=== PATIENT | male | born 1945 | race Caucasian/White ===

== ENCOUNTER → 2016-10-05 | Outpatient (CLI) | payer OTHER ==
[~2016-10-05] MED LIST: MIRALAX119 GM PO; NORCO 10-325 TA1 TAB PO; SENOKOT S1 TA1 PO; ZESTRIL40 MG PO; ZOCOR PO
--- NOTE | ~2016-10-05 | CT4 ---
[facility] A Service of [facility] & [facility] RADIOLOGY TEXT RESULTS PATIENT: EDY HENAO LOCATION: [facility] : [birth year] UNIT #: [id number] AGE: [address]: Sharif Ramirez MD SEX: M ORDER DR: [id number] [facility] [address] [place], [place] [address] [id number] O MR#: [id number] Acc #: [id number] NAME: EDY HENAO : 1945 SEX: M STUDY DATE/TIME: 10/05/2016 9:21 UNIT: CN ROOM: STUDY DESCRIPTION: CT Abd and Pelv Wo Cont Attending Physician: Sharif Ramirez M.D. Referring Physician: Sharif Ramirez M.D. Ordering Physician: Sharif Ramirez M.D. Primary Care Physician: Francois Fowler M.D. MEDICAL IMAGING REPORT This report is preliminary unless electronic signature is present EXAM CT abdomen and pelvis without contrast. INDICATION Slow urination for the past 7-8 months. Newly diagnosed prostate cancer 2 weeks ago. Staging. Observation for metastatic disease. PROCEDURE Unenhanced CT of the abdomen and pelvis. This CT exam was performed with one or more of the following radiation dose reduction techniques: automatic exposure control, adjustment of mA and/or kV according to patient size, and iterative reconstruction. COMPARISON STUDIES 10/10/2005 FINDINGS ABDOMEN WITHOUT CONTRAST: Included lung bases are clear. The liver, spleen, adrenal glands, pancreas, and gallbladder are unremarkable. Fairly extensive sigmoid diverticula. The appendix is normal. There is a 2.2 cm indeterminate lesion exophytic from the posterior left mid kidney. There is a 4.1 cm cyst exophytic from the anterior left kidney. No retroperitoneal adenopathy. PELVIS WITHOUT CONTRAST: Prostate enlarged measuring 5.7 cm. No pelvic adenopathy. No aggressive appearing bone lesion. There is a age indeterminant compression fracture of L3, with greater than 50% loss of central vertebral body height. This is new compared with 2006. IMPRESSION 1. No evidence for solid organ metastatic disease in the abdomen or [facility]. [facility] A Service of [facility] & [facility] RADIOLOGY TEXT RESULTS PATIENT: EDY HENAO LOCATION: [facility] : [birth year] UNIT #: [id number] AGE: [address]: Sharif Ramirez MD SEX: M ORDER DR: pelvis. 2. Prostatomegaly. 3. Left renal cysts with an indeterminate 2.2 cm lesion posterior left mid kidney, which should be further characterized. Initial evaluation with ultrasound may be helpful. Ultimately, multiphase MRI or CT will probably be required. 4. Age-indeterminate compression fracture of L3 is new compared with the [address] Dictated by... Keegan Vora M.D. THIS IS AN ELECTRONICALLY VERIFIED REPORT Keegan Vora M.D. at 10/06/2016 7:06 AM MARY/radha TD: 10/05/2016 11:54 JOB #: [id number] MEDICAL IMAGING REPORT Page 1 of 1 COPY
--- NOTE | ~2016-10-05 | NM8 ---
[facility] A Service of [facility] & [facility] RADIOLOGY TEXT RESULTS PATIENT: EDY HENAO LOCATION: [facility] : 49 UNIT #: [id number] AGE: [address]: Sharif Ramirez MD SEX: M ORDER DR: [id number] [facility] [address] [place], [place] [address] [id number] O MR#: [id number] Acc #: [id number] NAME: EDY HENAO : 1945 SEX: M STUDY DATE/TIME: 10/05/2016 11:50 UNIT: [facility] ROOM: STUDY DESCRIPTION: CA Bone or Joint Whole Body Attending Physician: Sharif Ramirez M.D. Referring Physician: Sharif Ramirez M.D. Ordering Physician: Sharif Ramirez M.D. Primary Care Physician: Francois Fowler M.D. MEDICAL IMAGING REPORT This report is preliminary unless electronic signature is present EXAM Whole body bone scan HISTORY Prostate cancer diagnosed two week ago. 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 COMPARISON CT scan of the abdomen and pelvis done the same day 10/05/2016. FINDINGS Patient was given 30.3 mCi Tc 99m MDP. Anterior and posterior images of the body were obtained as well as lateral views of the skull and neck and oblique views of the ribs. There is an intense focus of uptake in the posterior skull slightly to the right of midline. There is mild uptake in the L2-3 level in the lumbar spine suggesting degenerative disc disease. The patient has bilateral knee prostheses. There is mild uptake in the feet bilaterally consistent with degenerative change. The CT scan shows a compression fracture of L3 which is new from 2005. There are also lumbar spine plain films from 06/21/2015. The compression fracture was present at that time. IMPRESSION 1. Intense focus of uptake just to the right of midline in the posterior skull. There are no correlative films. This could represent a metastatic deposit. CT head without contrast is recommended. 2. Compression fracture of L3 is noted on recent CT scan done today as well as a plain film from 06/21/2015 so it is not new but there is increased uptake at this level in a band-like pattern probably representing degenerative changes at this level. The bone scan appearance is not really suggestive of metastatic disease and the CT scan today did not show any evidence of metastatic disease in that region. [facility] A Service of [facility] RADIOLOGY TEXT RESULTS PATIENT: EDY HENAO LOCATION: [facility] : 49 UNIT #: [id number] AGE: [address]: Sharif Ramirez MD SEX: M ORDER DR: 3. Otherwise study is negative. Dictated by... Edy Escudero M.D. THIS IS AN ELECTRONICALLY VERIFIED REPORT Edy Escudero M.D. at 10/07/2016 1:59 PM DARI/rnr TD: 10/06/2016 22:13 JOB #: [id number] MEDICAL IMAGING REPORT Page 1 of 1 COPY
[2016-10-05 15:11] LABS: POC - CREATININE 1.82 mg/dL (0.64-1.27)
== END | disposition home or self-care (01) ==
LOC: CNUC 07:51
PROVIDERS: Urology
DX: C61 Malignant neoplasm of prostate (principal); N40.0 Benign prostatic hyperplasia without lower urinary tract symptoms; N28.1 Cyst of kidney, acquired; N28.89 Other specified disorders of kidney and ureter; R94.8 Abnormal results of function studies of other organs and systems
CPT/HCPCS: 74176; 78306; 82565; A9503

== ENCOUNTER → 2016-10-20 | Outpatient (CLI) | payer OTHER ==
--- NOTE | ~2016-10-20 | CT71 ---
[facility] A Service of [facility] RADIOLOGY TEXT RESULTS PATIENT: EDY HENAO LOCATION: [facility] : 47 UNIT #: [id number] AGE: [address]: AMBAR NICOLAS SEX: M ORDER DR: [id number] [id number] [facility]. [place], [place] [address] [id number] O MR#: [id number] Acc #: [id number] NAME: EDY HENAO : 1945 SEX: M STUDY DATE/TIME: 10/20/2016 10:10 UNIT: [facility] ROOM: STUDY DESCRIPTION: CT Head Wo Contrast Attending Physician: Ambar Nicolas Ordering Physician: Neo Nicolas M.D. Primary Care Physician: Francois Fowler M.D. MEDICAL IMAGING REPORT This report is preliminary unless electronic signature is present EXAM CT head without contrast Date: 10/20/2016 HISTORY Prostate cancer. Abnormal bone scan. No current complaints. COMPARISON Whole-body bone scan 10/05/2016. No previous PET/CT for comparison at this institution. TECHNIQUE This CT exam was performed with one or more of the following radiation dose reduction techniques: automatic exposure control, adjustment of mA and/or kV according to patient size, and iterative reconstruction. FINDINGS No suspicious osteolytic abnormalities are identified. There is a prominent external occipital protuberance with inion hook configuration, which is thought most likely to correspond to the patient's site of uptake on recent whole-body bone scan. No additional calvarial lesions are identified. No intracranial hemorrhage, intracranial mass lesion, mass effect or midline shift is seen. There is no evidence of infarct. Paranasal sinuses are clear. Ventricular configuration is normal. IMPRESSION There is a prominent external occipital protuberance or inion hook configuration of the calvarium thought to correspond to the site of [facility] A Service of [facility] RADIOLOGY TEXT RESULTS PATIENT: EDY HENAO LOCATION: [facility] : 49 UNIT #: [id number] AGE: [address]: AMABR NICOLAS: M ORDER DR: patient's uptake on the recent bone scan. It does not appear frankly pathologic on this study. It could potentially represent uptake from focal inflammation near the trapezius - nuchal ligament insertion. Metastatic disease is not completely excluded but thought less likely, given the lack of osseous aggressive features. Intracranial findings are within normal limits. Dictated by... Phuong Siddiqui M.D. THIS IS AN ELECTRONICALLY VERIFIED REPORT Phuong Siddiqui M.D. at 10/23/2016 8:33 AM IDA/robel TD: 10/20/2016 20:07 JOB #: [id number] MEDICAL IMAGING REPORT Page 1 of 1 COPY
== END | disposition home or self-care (01) ==
LOC: CCAT 09:24
DX: C61 Malignant neoplasm of prostate (principal)
CPT/HCPCS: 36415; 70450; 84153

== ENCOUNTER → 2016-10-20 | Outpatient (CLI) | payer OTHER ==
--- NOTE | ~2016-10-20 | US77 ---
[facility] A Service of [facility] & [facility] RADIOLOGY TEXT RESULTS PATIENT: EDY HENAO LOCATION: [facility] : 49 UNIT #: [id number] AGE: [address]: Sharif Ramirez MD SEX: M ORDER DR: [id number] [facility] [address] [place], [place] [address] [id number] O MR#: [id number] Acc #: [id number] NAME: EDY HENAO : 1945 SEX: M STUDY DATE/TIME: 10/20/2016 10:45 UNIT: [facility] ROOM: STUDY DESCRIPTION: US Kidney Bilateral Complete Attending Physician: Sharif Ramirez M.D. Referring Physician: Sharif Ramirez M.D. Ordering Physician: Sharif Ramirez M.D. Primary Care Physician: Francois Fowler M.D. MEDICAL IMAGING REPORT This report is preliminary unless electronic signature is present EXAMINATION Bilateral renal ultrasound. DATE 10/20/2016 HISTORY Left renal mass on CT. Patient denies abdominal pain. History of kidney stones with lithotripsy in the . Patient states currently has prostate cancer, no treatment yet. COMPARISON CT abdomen and pelvis without contrast, 10/05/2016 and 10/10/2005. FINDINGS The right kidney measures 6.2 x 10.0 x 5.4 cm. The left kidney measures 11.5 x 6.1 x 5.3 cm. A hypoechoic, slightly lobulated lesion is seen in the posterior left mid kidney measuring 2.1 x 3.3 x 2.7 cm, thought to correspond to the questioned abnormality on previous CT. It does not have simple cystic appearance. There is a benign cyst in the anterior right mid to upper pole containing a thin internal septation measuring 4.3 x 3.8 x 3.7 cm. The left kidney demonstrates no shadowing stone or hydronephrosis. Right kidney demonstrates no cystic or solid abnormality. There is mild bilateral renal cortical thinning and slight increased echogenicity which may represent changes of chronic medical renal disease. The prostate gland is enlarged measuring up to 6.8 cm craniocaudally and protrudes into the urinary bladder base. [facility]. [facility] A Service of [facility] RADIOLOGY TEXT RESULTS PATIENT: EDY HENAO LOCATION: [facility] : 49 UNIT #: [id number] AGE: [address]: Sharif Ramirez MD SEX: M ORDER DR: IMPRESSION 1. Hypoechoic lesion in the posterior left mid kidney measures up to 3.3 cm and corresponds to the questioned abnormality on previous CT. This lesion does not have a simple cystic appearance. It is conceivable that it represents a cystic lesion containing hemorrhagic or proteinaceous products, however, a solid renal mass cannot be excluded. Dedicated CT abdomen without and with contrast renal imaging protocol is recommended as the next step in evaluation. 2. Features of chronic medical renal disease within both kidneys. 3. Benign-appearing cyst in the left mid to upper renal pole 4.3 cm. 4. Prostatomegaly. Dictated by... Phuong Siddiqui M.D. THIS IS AN ELECTRONICALLY VERIFIED REPORT Phuong Siddiqui M.D. at 10/23/2016 8:32 AM IDA/jose TD: 10/20/2016 16:59 JOB #: [id number] MEDICAL IMAGING REPORT Page 1 of 1 COPY
== END | disposition home or self-care (01) ==
LOC: CGUS 09:44
DX: N28.89 Other specified disorders of kidney and ureter (principal); N28.1 Cyst of kidney, acquired; N40.0 Benign prostatic hyperplasia without lower urinary tract symptoms
CPT/HCPCS: 76770

== ENCOUNTER → 2016-11-01 | Outpatient (CLI) | payer OTHER ==
--- NOTE | ~2016-11-01 | MR3 ---
[facility] A Service of [facility] & [facility] RADIOLOGY TEXT RESULTS PATIENT: EDY HENAO [facility] : [birth year] UNIT #: [id number] AGE: [address]: Sharif Ramirez MD SEX: M ORDER DR: [id number] [place] [address] [id number] [facility]. [place], [place] [address] [id number] O MR#: [id number] Acc #: [id number] NAME: EDY HENAO : 1945 SEX: M STUDY DATE/TIME: 11/01/2016 7:50 UNIT: [facility] ROOM: STUDY DESCRIPTION: MR Abdomen Wo Contrast Attending Physician: Sharif Ramirez M.D. Referring Physician: Sharif Ramirez M.D. Ordering Physician: Sharif Ramirez M.D. Primary Care Physician: Francois Fowler M.D. MRI CENTER REPORT This report is preliminary unless electronic signature is present. EXAM MRI abdomen INDICATIONS Renal mass. Abnormal CT scan and ultrasound of the left kidney. TECHNIQUE Multiplanar MRI of the abdomen without contrast. COMPARISON Renal ultrasound dated 10/20/[address] abdomen and pelvis dated 10/05/2016. FINDINGS The kidneys are atrophic bilaterally. There are several benign cysts within both kidneys. The largest cyst in the superior pole left kidney measures up to 4.4 cm. There is an indeterminate cystic lesion in the mid to lower right kidney measuring 2.3 x 2.1 x 2.3 cm. This lesion is predominately cystic with high T2 signal, however, there is some low T2 signal on the posterior aspects of the lesion. There is intermediate T1 signal. This likely represents some hemorrhagic or proteinaceous debris. This could be further evaluated with an MR abdomen with and without contrast (the patient has a GFR of 39 which it is safe to administer contrast. There is no hydronephrosis. There is background steatosis in the liver. The pancreas is atrophic. Gallbladder is not distended. The spleen and adrenal glands are normal. The bowel is not dilated. IMPRESSION 1. 2.3 cm lesion in the mid to inferior left kidney is predominately [facility] A Service of [facility] & [facility] RADIOLOGY TEXT RESULTS PATIENT: EDY HENAO [facility] 47 UNIT #: [id number] AGE: [address]: Sharif Ramirez MD SEX: M ORDER DR: cystic. There is some proteinaceous or hemorrhagic debris within the posterior aspect of the cyst. Therefore, I would recommend that this be followed. Consider a 6-month CT scan. For definitive characterization, consider MR abdomen with and without contrast. MR contrast can be safely administered with GFRs above 30 (patient's GFR was 39 at this office visit). Dictated by... Randy Ferraro M.D. THIS IS AN ELECTRONICALLY VERIFIED REPORT Randy Ferraro M.D. at 11/01/2016 4:54 PM ROXANNA/yonny TD: 11/01/2016 16:21 JOB #: [id number] MRI CENTER REPORT Page 1 of 1 COPY
== END | disposition home or self-care (01) ==
LOC: CMRI 06:34
DX: N28.89 Other specified disorders of kidney and ureter (principal)
CPT/HCPCS: 74181